=== PATIENT | male | born 1965 | race Two or more races ===

== ENCOUNTER → 2017-07-04 | Outpatient (CLI) | payer OTHER ==
[2017-07-04 13:08] LABS: BASOPHIL % 0.7 % (0.0-0.2); EOSINOPHIL # 0.2 10^3/uL (0.0-0.2); EOSINOPHIL % 3.7 % (0.0-5.0); HEMOGLOBIN 8.2 g/dL (13.9-16.3); LYMPHOCYTES % 37.1 % (24.0-44.0); MEAN CELL HGB 20.6 pg (26-34); MEAN CELL HGB CONCENTRATION 29.9 g/dL (33-37); MEAN CORP VOLUME 68.7 fL (78-100); MEAN PLATELET VOLUME 11.3 fL (7.8-11.0); MONOCYTES % 17.9 % (5.0-12.0); NEUTROPHIL # 2.2 10^3/uL (1.8-7.7); NEUTROPHILS % 40.6 % (41.0-85.0); PLATELET COUNT 102 10^3/uL (150-400); RED CELL DISTRIBUTION WIDTH 20.2 % (11.5-14.5); WHITE BLOOD CELL 5.5 10^3/uL (4.5-11.0)
[2017-07-04 17:56] LABS: ANISOCYTOSIS 1+ (NEGATIVE)
== END | disposition home or self-care (01) ==
LOC: LAB 10:15
PROVIDERS: ATTEND Student in an Organized Health Care Education/Training Program
DX: D64.9 Anemia, unspecified (principal)
CPT/HCPCS: 85025; 85660